=== PATIENT | female | born 1970 | race Caucasian/White ===

== ENCOUNTER → 2020-04-02 | Outpatient (CLI) | payer BC, OTHER ==
[~2020-04-02] MED LIST: ACET1TAB55 PO; ALBU8.5H INH; BIOT1CAP2 PO; GYMNEMA PA; IRON27TA2 PO; IRON65TA PO; LEVO750T14 PO; MAGN400C PO; MULT1TAB8 PO; NORE0.353 PO; PRED20TA PO; VITA1CHW10 PO; XARE15TA PO; XARE20TA PO; ZINC1TAB2 PO; [UNRECOGNIZED DRUG - OTHER] PO
--- NOTE | 2020-04-02 15:57 | REPMRS ---
Patient History The patient states she has not had a clinical breast exam in over a year. Baseline Mammogram Patient is nulliparous. Family history of ovarian cancer at age 35 in mother, breast cancer under age 50 in maternal aunt, breast cancer at age 50 or over in paternal aunt. Implants in both breasts, 2016. Digital Woman Screen Mammo: April 02, 2020 - Exam #: [id number] Bilateral CC and MLO view(s) were taken. Technologist: Jessi Obrien, Technologist No prior studies available for comparison. FINDINGS: There are scattered fibroglandular densities. The visualized implant margins are smooth. The Volpara volumetric breast density category is: C. Breast parenchymal density pattern is essentially symmetric. No dominant mass, grouped microcalcification, or architectural distortion is evident on either side. 3-D tomosynthesis shows no additional findings. Assessment: BI-RADS/ACR category 2 mammogram. Benign Findings. Recommendation Breast MRI of both breasts in 6 months. Routine screening mammogram of both breasts in 1 year (for women over age 40). This patient's [facility] Lifetime Breast Cancer RIsk is estimated at 26.2 %. Annual screening Breast MRI scanniing is recommended for patient's whose lifetime risk assessment is over 20%. This mammogram was interpreted with the aid of an FDA-approved computer-aided dectection system. Electronically Signed By: Aron Ball MD 04/02/20 [id number]
== END ==
LOC: M WHC 12:55 → MERGE 13:00
PROVIDERS: ATTEND Internal Medicine Medical Oncology
DX: Z12.31 Encounter for screening mammogram for malignant neoplasm of breast (principal); Z80.41 Family history of malignant neoplasm of ovary; Z98.82 Breast implant status

== ENCOUNTER → 2020-07-02 | Outpatient (CLI) | payer BC, OTHER ==
[~2020-07-02] MED LIST changes: +COVI2.5V IM; +IRON325T2 PO
--- NOTE | 2020-07-02 08:31 | REP ---
INDICATION: INCREASING LFTS. COMPARISON: 04/18/2015 FINDINGS: Multiple ultrasonographic images of the liver show the hepatic parenchymal echo texture to appear unremarkable. There are no focal masses. There is no intrahepatic ductal dilatation. The common bile duct measures approximately 6.7 mm in its greatest transverse dimension. Images of the pancreatic region show no gross abnormality. The imaged portion of the right kidney is unremarkable. IMPRESSION: Unremarkable right upper quadrant ultrasound, status post cholecystectomy. Accredited by the [employer] in General Ultrasound. <Electronically signed by Bobby Eli > 07/02/20 [id number]
== END ==
LOC: M RAD 06:35
PROVIDERS: ATTEND Internal Medicine Medical Oncology
DX: R79.89 Other specified abnormal findings of blood chemistry (principal)

== ENCOUNTER → 2020-09-04 | Outpatient (CLI) | payer BC, OTHER ==
[2020-09-04 18:21] LABS: ALBUMIN 3.1 GM/DL (3.2-5.2); ALT/SGPT 234 U/L (12-78); BILIRUBIN,DIRECT 1.1 MG/DL (0.0-0.2); BILIRUBIN,TOTAL 1.8 MG/DL (0.2-1.0); IRON (FE) 71 UG/DL (50-170); PERCENT SATURATION 16.7 % (13.2-45.0); TOTAL IRON BINDING CAPACITY 426 UG/DL (250-450); TOTAL PROTEIN 6.7 GM/DL (6.4-8.2)
[2020-09-04 18:39] LABS: HEPATITIS B SURFACE ANTIGEN NEGATIVE (NEGATIVE)
[2020-09-04 19:07] LABS: HEPATITIS C VIRUS ABY INDEX < 0.0 INDEX (<0.8)
[2020-09-04 19:08] LABS: HEPATITIS B CORE ANTIBODY IGM NEGATIVE (NEGATIVE)
[2020-09-04 20:00] LABS: HEPATITIS A ANTIBODY IGM NEGATIVE (NEGATIVE)
== END ==
LOC: M LAB 16:28
PROVIDERS: ATTEND Internal Medicine Gastroenterology
DX: R94.5 Abnormal results of liver function studies (principal)

== ENCOUNTER 2020-09-05 16:50 | Emergency (ER) | payer BC, OTHER ==
[~2020-09-05] VITALS: Ht 167.6 cm; Wt 10.9 kg
[2020-09-05 17:54] LABS: BASO # 0.1 10^3/uL (0.0-0.2); BASO % 0.9 % (0.0-1.0); EOS # 0.2 10^3/uL (0.0-0.5); EOS % 2.8 % (0.0-3.0); HEMATOCRIT 42.8 % (36.0-47.0); HEMOGLOBIN 14.7 g/dl (12.0-15.5); LYMPH # 1.8 10^3/uL (1.5-5.0); MEAN CORPUSCULAR HEMOGLOBIN 32.2 pg (27.0-33.0); MEAN CORPUSCULAR HGB CONC 34.3 g/dl (32.0-36.5); MEAN CORPUSCULAR VOLUME 93.9 fl (80.0-96.0); MONO # 0.6 10^3/uL (0.0-0.8); NEUTROPHILS # 2.7 10^3/uL (1.5-8.5); NEUTROPHILS % 51.1 % (36.0-66.0); PLATELET COUNT, AUTOMATED 190 10^3/uL (150-450); RED BLOOD COUNT 4.56 10^6/uL (4.00-5.40); WHITE BLOOD COUNT 5.3 10^3/uL (4.0-10.0)
[2020-09-05 18:37] LABS: ALT/SGPT 215 U/L (12-78); BILIRUBIN,DIRECT 1.2 MG/DL (0.0-0.2); BLOOD UREA NITROGEN 7 MG/DL (7-18); C REACTIVE PROTEIN QUANTITATIV 0.75 MG/DL (0.00-0.30); CALCIUM LEVEL 8.2 MG/DL (8.5-10.1); CARBON DIOXIDE LEVEL 23 MEQ/L (21-32); CHLORIDE LEVEL 106 MEQ/L (98-107); CREATININE FOR GFR 0.75 MG/DL (0.55-1.30); GLOMERULAR FILTRATION RATE > 60.0 (>58); GLUCOSE, FASTING 255 MG/DL (70-100); NT-PRO BNP 32 PG/ML (<125); POTASSIUM SERUM 4.2 MEQ/L (3.5-5.1); SODIUM LEVEL 137 MEQ/L (136-145); TOTAL PROTEIN 6.8 GM/DL (6.4-8.2)
[2020-09-05 18:54] LABS: ERYTHROCYTE SEDIMENTATION RATE 10 mm/hr (0-20)
--- NOTE | 2020-09-05 19:38 | REP ---
INDICATION: swelling of legs, tender left greater than right COMPARISON: None. TECHNIQUE: Estrada scale and color Doppler evaluation using linear high frequency transducer. FINDINGS: Ultrasound examination of the right and left lower extremity deep venous structures from the common femoral vein through the popliteal veins demonstrate normal compressibility flow and wave patterns in response to respiration and augmentation and no evidence for deep venous thrombosis. The bilateral calf veins are incompletely evaluated due to patient body habitus and technical factors. IMPRESSION: No evidence for deep venous thrombosis. <Electronically signed by Jack Hunter > 09/05/201933
[2020-09-05 19:55] VITALS: BP 153/76
[2020-09-05 20:02] LABS: APPEARANCE, URINE HAZY (CLEAR); BACTERIA, URINE AUTO NEGATIVE (NEGATIVE); BILIRUBIN, URINE AUTO 1+ (NEGATIVE); BLOOD, URINE BLOOD NEGATIVE (NEGATIVE); COLOR, URINE AMBER (YELLOW); GLUCOSE, URINE (UA) AUTO 3+ mg/dL (NEGATIVE); KETONE, URINE AUTO NEGATIVE (NEGATIVE); LEUKOCYTE ESTERASE, URINE AUTO 1+ (NEGATIVE); MUCUS, URINE SMALL (NEGATIVE); NITRITE, URINE AUTO NEGATIVE (NEGATIVE); PROTEIN, URINE AUTO NEGATIVE (NEGATIVE); RBC, URINE AUTO 4 /HPF (0-3); SPECIFIC GRAVITY URINE AUTO 1.025 (1.002-1.035); SQUAMOUS EPITHELIAL CELL UR AU 6 /HPF (0-6); WBC, URINE AUTO 7 /HPF (0-3)
== END 2020-09-05 20:05 | disposition home or self-care (01) ==
LOC: M ED 16:50
DX: R60.9 Edema, unspecified (principal); R74.8 Abnormal levels of other serum enzymes; Z79.01 Long term (current) use of anticoagulants; Z79.899 Other long term (current) drug therapy; Z86.711 Personal history of pulmonary embolism; Z98.890 Other specified postprocedural states; Z86.16 Personal history of COVID-19

== ENCOUNTER → 2020-10-03 | Outpatient (CLI) | payer BC, OTHER ==
--- NOTE | 2020-10-04 08:50 | REP ---
INDICATION: ABN LIVER STUDIES. Rule out choledocholithiasis. COMPARISON: Comparison is made with CT imaging from April 18, 2015 and February 13, 2020. Comparison ultrasound July 02, 2020.. TECHNIQUE: MRI/MRCP protocol is acquired. Axial and coronal T1 and T2 weighted sequences include spin echo, fast spin echo, diffusion, gradient echo, 3D T2 weighted MRCP images. Maximum intensity projection images are generated. FINDINGS: There is a geographic pattern of altered signal intensity on T1 and T2 weighted scans with areas of slightly increased T2 signal. There is signal dropout on the out of phase images suggesting that this is fatty infiltration. No masslike lesion is seen. The patient is status post breast augmentation bilaterally. There is a 12 mm cyst in the right kidney. No pancreatic abnormality is observed. There is no evidence of ascites. The adrenal glands are unremarkable. On MRCP, the common bile duct is seen to be at the upper range of normal post cholecystectomy measuring 8.6 mm. No obstructive lesion is seen. No filling defect is seen to suggest choledocholithiasis. Pancreatic duct is not dilated. IMPRESSION: There is no evidence of choledocholithiasis. Geographic pattern of altered signal intensity in the liver, suspect fatty infiltration. <Electronically signed by Aron Ball > 10/04/20 [id number]
== END ==
LOC: M RAD 18:06
PROVIDERS: ATTEND Internal Medicine Gastroenterology
DX: R94.5 Abnormal results of liver function studies (principal)

== ENCOUNTER → 2021-09-09 | Outpatient (CLI) | payer BC, OTHER | LOC: M WHC 09:30 | PROVIDERS: ATTEND Obstetrics & Gynecology | DX: Z12.31 Encounter for screening mammogram for malignant neoplasm of breast (principal) ==

== ENCOUNTER → 2022-09-03 | Outpatient (CLI) | payer OTHER ==
[~2022-09-03] MED LIST changes: +FARX1TAB3; +FERR325T3 PO; +ROSU5TAB5
== END ==
LOC: M OUTALCOH 07:37
PROVIDERS: ATTEND Psychiatry & Neurology Psychiatry
DX: F10.10 Alcohol abuse, uncomplicated (principal)

== ENCOUNTER 2022-09-30 08:00 | Outpatient (RCR) | payer OTHER | END 2022-10-05 | LOC: M OUTALCOH 08:00 | PROVIDERS: ATTEND Psychiatry & Neurology Psychiatry | DX: F10.20 Alcohol dependence, uncomplicated (principal) ==

== ENCOUNTER → 2022-11-05 | Outpatient (RCR) | payer OTHER | LOC: M OUTALCOH 10-06 16:00 | PROVIDERS: ATTEND Psychiatry & Neurology Psychiatry | DX: F10.20 Alcohol dependence, uncomplicated (principal) ==

== ENCOUNTER → 2022-12-16 | Outpatient (CLI) | payer OTHER ==
[~2022-12-16] MED LIST changes: -FARX1TAB3; +FARX1TAB3 PO; +METF500T13 PO; -ROSU5TAB5; +ROSU5TAB5 PO; +SEMA0.257 SC
== END ==
LOC: M WHC 13:57
PROVIDERS: ATTEND Nurse Practitioner Family
DX: Z12.31 Encounter for screening mammogram for malignant neoplasm of breast (principal)

== ENCOUNTER 2023-01-04 14:00 | Outpatient (RCR) | payer OTHER | END 2023-01-05 | LOC: M OUTALCOH 14:00 | PROVIDERS: ATTEND Psychiatry & Neurology Psychiatry | DX: F10.20 Alcohol dependence, uncomplicated (principal) ==

== ENCOUNTER → 2023-02-04 | Outpatient (RCR) | payer OTHER | LOC: M OUTALCOH 01-07 11:16 | PROVIDERS: ATTEND Psychiatry & Neurology Psychiatry | DX: F10.20 Alcohol dependence, uncomplicated (principal) ==

== ENCOUNTER → 2023-02-09 | Outpatient (CLI) | payer OTHER ==
[2023-02-09 14:37] LABS: HEMOGLOBIN A1c 6.5 % (4.0-6.0)
== END ==
LOC: M WUC 09:35
PROVIDERS: ATTEND Physician Assistant
DX: E11.9 Type 2 diabetes mellitus without complications (principal)

== ENCOUNTER 2023-02-25 13:00 | Outpatient (RCR) | payer OTHER | END 2023-03-07 | LOC: M OUTALCOH 13:00 | PROVIDERS: ATTEND Psychiatry & Neurology Psychiatry | DX: F10.20 Alcohol dependence, uncomplicated (principal) ==

== ENCOUNTER 2023-04-05 16:00 | Outpatient (RCR) | payer OTHER | END 2023-04-07 | LOC: M OUTALCOH 16:00 | PROVIDERS: ATTEND Psychiatry & Neurology Psychiatry | DX: F10.20 Alcohol dependence, uncomplicated (principal) ==

== ENCOUNTER 2023-04-29 09:00 | Outpatient (RCR) | payer OTHER | END 2023-05-06 | LOC: M OUTALCOH 09:00 | PROVIDERS: ATTEND Psychiatry & Neurology Psychiatry | DX: F10.20 Alcohol dependence, uncomplicated (principal) ==

== ENCOUNTER → 2023-05-21 | Outpatient (CLI) | payer OTHER ==
[2023-05-21 16:49] LABS: HEMATOCRIT 44.1 % (36.0-47.0); HEMOGLOBIN 14.8 g/dl (12.0-15.5); MEAN CORPUSCULAR HEMOGLOBIN 31.9 pg (27.0-33.0); MEAN CORPUSCULAR HGB CONC 33.6 g/dl (32.0-36.5); PLATELET COUNT, AUTOMATED 254 10^3/uL (150-450); RED BLOOD COUNT 4.64 10^6/uL (4.00-5.40)
[2023-05-21 17:04] LABS: ALBUMIN 3.7 G/DL (3.2-5.2); ALKALINE PHOSPHATASE 82 U/L (46-116); ALT/SGPT 28 U/L (7.0-40); AST/SGOT 26 U/L (<34); BILIRUBIN,TOTAL 0.7 MG/DL (0.3-1.2); BLOOD UREA NITROGEN 15 MG/DL (9-23); CARBON DIOXIDE LEVEL 29 MMOL/L (20-31); CHLORIDE LEVEL 106 MMOL/L (98-107); CHOLESTEROL LEVEL 128 MG/DL (<200); CHOLESTEROL RISK RATIO 2.38 (<5); CREATININE FOR GFR 0.58 MG/DL (0.55-1.30); GLOMERULAR FILTRATION RATE > 60.0 (>51); GLUCOSE, FASTING 143 MG/DL (60-100); HDL CHOLESTEROL 53.7 MG/DL (>40); IRON (FE) 111 UG/DL (50-170); LDL CHOLESTEROL 53.1 MG/DL (<100); NON-HDL-C 74.3 MG/DL; POTASSIUM SERUM 3.8 MMOL/L (3.5-5.1); SODIUM LEVEL 138 MMOL/L (136-145); TOTAL PROTEIN 6.5 G/DL (5.7-8.2); TRIGLYCERIDES LEVEL 106 MG/DL (<150)
[2023-05-21 17:16] LABS: HEMOGLOBIN A1c 5.6 % (4.0-6.0)
== END ==
LOC: M WUC 13:38
PROVIDERS: ATTEND Physician Assistant
DX: E11.9 Type 2 diabetes mellitus without complications (principal); E78.5 Hyperlipidemia, unspecified; D50.9 Iron deficiency anemia, unspecified

== ENCOUNTER 2023-06-03 09:00 | Outpatient (RCR) | payer OTHER ==
[~2023-06-03 09:00] MED LIST changes: +SEMA2PEN
== END 2023-06-06 ==
LOC: M OUTALCOH 09:00
PROVIDERS: ATTEND Psychiatry & Neurology Psychiatry
DX: F10.20 Alcohol dependence, uncomplicated (principal)

== ENCOUNTER → 2023-06-07 | Outpatient (CLI) | payer OTHER ==
[~2023-06-07] MED LIST changes: +PROHANCE 279.3MG/ML 15ML VIAL ONE; +PROHANCE 279.3MG/ML 5ML VIAL ONE
== END ==
LOC: M PLAIMG 07:37
PROVIDERS: ATTEND Nurse Practitioner Family
DX: Z91.89 Other specified personal risk factors, not elsewhere classified (principal); Z80.3 Family history of malignant neoplasm of breast

== ENCOUNTER 2023-06-17 10:00 | Outpatient (RCR) | payer OTHER ==
[~2023-06-17 10:00] MED LIST changes: -PROHANCE 279.3MG/ML 15ML VIAL ONE; -PROHANCE 279.3MG/ML 5ML VIAL ONE
== END 2023-07-06 ==
LOC: M OUTALCOH 10:00
PROVIDERS: ATTEND Psychiatry & Neurology Psychiatry
DX: F10.20 Alcohol dependence, uncomplicated (principal)

== ENCOUNTER 2023-07-15 08:58 | Outpatient (RCR) | payer OTHER ==
[~2023-07-15 08:58] MED LIST changes: +ROSU5TAB40 PO; -ROSU5TAB5 PO
== END 2023-08-06 ==
LOC: M OUTALCOH 08:58
PROVIDERS: ATTEND Psychiatry & Neurology Psychiatry
DX: F10.20 Alcohol dependence, uncomplicated (principal)

== ENCOUNTER 2023-08-26 09:36 | Outpatient (RCR) | payer OTHER | END 2023-09-05 | LOC: M OUTALCOH 09:36 | PROVIDERS: ATTEND Psychiatry & Neurology Psychiatry | DX: F10.20 Alcohol dependence, uncomplicated (principal) ==

== ENCOUNTER → 2023-09-02 | Outpatient (REF) | payer OTHER ==
[2023-09-02 15:18] LABS: HEMOGLOBIN A1c 5.5 % (4.0-6.0)
== END ==
LOC: M LABWUC 11:37
PROVIDERS: ATTEND Physician Assistant
DX: E11.9 Type 2 diabetes mellitus without complications (principal)

== ENCOUNTER → 2024-01-24 | Outpatient (REF) | payer OTHER ==
[~2024-01-24] MED LIST changes: -LEVO750T14 PO; +LEVO75TAB PO; -ROSU5TAB40 PO; +ROSU5TAB49 PO
[2024-01-24 18:53] LABS: HEMOGLOBIN A1c 5.4 % (4.0-6.0)
== END ==
LOC: M LABWUC 16:45
PROVIDERS: ATTEND Physician Assistant
DX: E11.9 Type 2 diabetes mellitus without complications (principal)